=== PATIENT | male | born 1985 | race Caucasian/White ===

== ENCOUNTER 2017-04-12 03:15 | Emergency (ER) | payer OTHER ==
[~2017-04-12] VITALS: Ht 182.9 cm; Wt 70.3 kg
[2017-04-12 05:09] VITALS: BP 108/64
== END 2017-04-12 05:11 | disposition home or self-care (01) ==
LOC: ER 03:15
DX: S01.411A Laceration without foreign body of right cheek and temporomandibular area, initial encounter (principal); F10.99 Alcohol use, unspecified with unspecified alcohol-induced disorder; F17.210 Nicotine dependence, cigarettes, uncomplicated; Y04.0XXA Assault by unarmed brawl or fight, initial encounter; Y93.89 Activity, other specified; Y92.89 Other specified places as the place of occurrence of the external cause; Y99.8 Other external cause status

== ENCOUNTER 2017-06-28 12:07 | Emergency (ER) | payer OTHER ==
[~2017-06-28] VITALS: Ht 182.9 cm; Wt 64.0 kg
[2017-06-28 13:08] LABS: HEMATOCRIT 43.5 % (42.0-52.0); HEMOGLOBIN 14.5 gm/dL (14.0-18.0); MCH 29.6 pg (26.0-34.0); MCHC 33.3 g/dL (28.0-37.0); MCV 88.9 fL (80.0-100.0); RBC 4.89 mil/uL (4.50-6.00); RDW 13.4 % (10.5-14.5); WBC 15.9 thou/uL (4.0-11.0)
[2017-06-28 13:17] LABS: CALCIUM 8.8 mg/dL (8.5-10.1); CREATININE 0.9 mg/dL (0.7-1.3); POTASSIUM 3.6 mmol/L (3.5-5.1)
[2017-06-28 15:48] LABS: AMP/METHAMP POSITIVE (Negative); BARBITURATES Negative (Negative); BENZODIAZEPINES POSITIVE (Negative); COCAINE Negative (Negative); METHADONE Negative (Negative); OPIATES POSITIVE (Negative); PCP Negative (Negative)
[2017-06-28 16:35] VITALS: BP 112/75
== END 2017-06-28 16:40 | disposition home or self-care (01) ==
LOC: ER 12:07
PROVIDERS: Emergency Medicine
DX: T40.1X1A Poisoning by heroin, accidental (unintentional), initial encounter (principal); T42.4X1A Poisoning by benzodiazepines, accidental (unintentional), initial encounter; F15.11 Other stimulant abuse, in remission; F17.210 Nicotine dependence, cigarettes, uncomplicated; F10.99 Alcohol use, unspecified with unspecified alcohol-induced disorder; F12.10 Cannabis abuse, uncomplicated; Y92.89 Other specified places as the place of occurrence of the external cause